=== PATIENT | male | born 1995 | race Hispanic/Latino ===

== ENCOUNTER 2021-09-08 19:35 | Emergency (ER) | payer BC, SELFPAY ==
[2021-09-08 19:43] VITALS: BP 130/73; PULSE 84; RESP 16; TEMP 36.6; O2SAT 100
--- NOTE | 2021-09-08 22:32 | PC.NURSE ---
Pt exits ED prior to seeing provider. No sign of distress, steady gait.
== END 2021-09-09 04:54 | disposition left against medical advice (07) ==
LOC: ANHED 22:41
DX: R10.30 Lower abdominal pain, unspecified (principal)
CPT/HCPCS: 99199